=== PATIENT | female | born 2000 | race Two or more races ===

== ENCOUNTER 2023-11-05 17:20 | Emergency (ER) | payer OTHER ==
[~2023-11-05] VITALS: Ht 160 cm; Wt 52.6 kg
[2023-11-05] MEDS ORDERED: PRENATAL + DHA1 EAC1 PO (17:44)
[2023-11-05 18:54] LABS: HEMOGLOBIN 10.4 g/dL (12.0-15.00); MEAN CELL VOLUME 91.9 fL (80.00-100.00); MEAN CORPUSCULAR HEMOGLOBIN 31.9 pg (27.00-32.0); MEAN CORPUSCULAR HGB CONC 34.7 g/dl (32.0-36.0); PLATELET COUNT 314 K/uL (150-450); RED BLOOD COUNT 3.26 M/uL (4.00-6.00); RED CELL DISTRIBUTION WIDTH 14.8 % (11.5-14.5)
[2023-11-05 19:13] LABS: INR 1.09; PARTIAL THROMBOPLASTIN TIME 29.4 SECONDS (22.0-34.0); PROTHROMBIN TIME 11.4 SECONDS (9.0-11.5)
[2023-11-05 19:32] LABS: CALCIUM 8.6 mg/dL (8.5-10.1); CREATININE SERUM 0.65 mg/dL (0.55-1.02); GFR 111.98; POTASSIUM 3.77 mEq/L (3.5-5.1)
[2023-11-05] MEDS ORDERED: ONDANSETRON HCL4 MG PO (21:01)
[2023-11-05] MEDS ORDERED: ZYRTEC10 MG PO (21:01)
[2023-11-05] MEDS ORDERED: QC TUSSIN DM L118 ML PO (21:01)
== END 2023-11-05 21:25 ==
LOC: ER 17:21
PROVIDERS: Nurse Practitioner Family
DX: O26.891 Other specified pregnancy related conditions, first trimester (principal); Z3A.01 Less than 8 weeks gestation of pregnancy